=== PATIENT | female | born 1965 | race Caucasian/White ===

== ENCOUNTER 2016-10-22 09:06 | Emergency (ER) | payer BC ==
[~2016-10-22] VITALS: Ht 165.1 cm; Wt 83.6 kg
[~2016-10-22 09:06] MED LIST: LEVOTHYROXINE100 MCG PO; MOBIC15 MG PO; ULTRAM50 MG PO
[2016-10-22 09:22] VITALS: BP 115/44
[2016-10-22] MEDS ORDERED: LEVO-T88 MCG PO (10:42)
== END 2016-10-22 10:43 | disposition home or self-care (01) ==
LOC: EME 09:06
DX: M25.511 Pain in right shoulder (principal); F17.200 Nicotine dependence, unspecified, uncomplicated
CPT/HCPCS: 73030; 99281; 99283